=== PATIENT | female | born 1970 | race Hispanic/Latino ===

== ENCOUNTER 2018-08-21 07:40 | Day surgery (SDC) | payer MEDICARE | END 2018-08-21 10:40 | disposition home or self-care (01) | LOC: ENDO 07:40 | DX: K21.9 Gastro-esophageal reflux disease without esophagitis (principal) ==

== ENCOUNTER 2018-08-28 12:51 | Outpatient (CLI) | payer MEDICARE | END 2018-08-28 12:52 | disposition home or self-care (01) | LOC: RAD 12:52 ==

== ENCOUNTER 2018-08-30 11:59 | Outpatient (CLI) | payer MEDICARE | END 2018-08-30 12:00 | disposition home or self-care (01) | LOC: LAB 11:59 ==